=== PATIENT | female | born 1980 | race Caucasian/White ===

== ENCOUNTER 2017-09-14 18:20 | Emergency (ER) | payer MEDICAID ==
[~2017-09-14] VITALS: Ht 165.1 cm; Wt 90.8 kg
[2017-09-14 18:25] VITALS: BP 121/42
[2017-09-14] MEDS ORDERED: CLIN-80 PO (18:27)
== END 2017-09-14 18:43 | disposition home or self-care (01) ==
LOC: ER 18:21
DX: K04.7 Periapical abscess without sinus (principal)
CPT/HCPCS: 99283

== ENCOUNTER 2019-11-13 13:05 | Emergency (ER) | payer MEDICAID ==
[~2019-11-13] VITALS: Ht 167.6 cm; Wt 50.0 kg
[~2019-11-13 13:05] MED LIST: CLIN-97 PO
[2019-11-13] MEDS ORDERED: diphenhydrAMINE 50 mg/ml inj IM ONE (13:30)
[2019-11-13] MEDS ORDERED: LORazepam 2 mg/ml vial IM ONE (13:30)
[2019-11-13] MEDS ORDERED: ziprasidone IM 20mg inj **IM only IM ONE (13:30)
--- NOTE | 2019-11-13 13:30 | NUR ---
Pt uncooperative with staff, requested MD to bedside. MD ordered medication that was administered without incident. Pt changed into green scrubs and given green blanket.
[2019-11-13 13:37] LABS: BASOPHILS # (AUTO) 0.1 X10'3 (0-0.2); BASOPHILS % (AUTO) 1.3 % (0-1); EOSINOPHILS # (AUTO) 0.1 X10'3 (0-0.9); EOSINOPHILS % (AUTO) 1.8 % (0-6); HEMATOCRIT 35.8 % (35.0-45.0); HEMOGLOBIN 11.2 g/dl (12.0-16.0); LYMPHOCYTES # (AUTO) 3.2 X10'3 (1.1-4.8); LYMPHOCYTES % (AUTO) 41.9 % (21-51); MEAN CORPUSCULAR HEMOGLOBIN 23.5 PG (27.0-31.0); MEAN CORPUSCULAR HGB CONC 31.4 g/dL (33.0-36.5); MEAN PLATELET VOLUME 8.9 FL (7.4-10.4); MONOCYTES # (AUTO) 0.3 X10'3 (0-0.9); MONOCYTES % (AUTO) 4.5 % (2-12); NEUTROPHILS # (AUTO) 3.8 X10'3 (1.8-7.7); NEUTROPHILS % (AUTO) 50.5 % (42-75); PLATELET COUNT 254 X10'3 (140-440); RED BLOOD COUNT 4.78 X10'6 (4.20-5.60); RED CELL DISTRIBUTION WIDTH 18.1 % (11.5-14.5); WHITE BLOOD COUNT 7.6 X10'3 (4.5-11.0)
[2019-11-13 13:46] LABS: CLARITY,URINE CLOUDY (Clear); GLUCOSE, URINE NEGATIVE (Neg); KETONES,URINE 40 mg/dl (Neg); LEUKOCYTE ESTERASE ,URINE NEGATIVE (Neg); NITRITES, URINE NEGATIVE (Neg); OCCULT BLOOD,URINE NEGATIVE (Neg); PROTEIN,URINE TRACE mg/dl (Neg); UROBILINOGEN,URINE 0.2 E.U/dL (0.2-1.0)
[2019-11-13 13:56] LABS: ALANINE AMINOTRANSFERASE 18 U/L (12-78); ALBUMIN 4.4 G/DL (3.4-5.0); ALBUMIN/GLOBULIN RATIO 1.3 (1.1-1.5); ALKALINE PHOSPHATASE 61 IU/L (46-116); ANION GAP 11 (8-16); ASPARTATE AMINO TRANSFERASE 16 U/L (10-37); BILIRUBIN,TOTAL 0.6 MG/DL (0.1-1.0); BLOOD UREA NITROGEN 11 MG/DL (7-18); BUN/CREATININE RATIO 13.9 (6.6-38.0); CHLORIDE 104 MMOL/L (99-107); CREATININE 0.79 MG/DL (0.40-0.90); GLUCOSE 92 MG/DL (70-104); POTASSIUM 3.9 MMOL/L (3.5-5.1); SODIUM 139 MMOL/L (135-145); TOTAL PROTEIN 7.9 G/DL (6.4-8.2); eGFR 81 ML/MIN
[2019-11-13 13:57] LABS: UA COLLECTION TYPE NON-SPECIFIED
[2019-11-13 13:58] LABS: COLOR,URINE DARK YELLOW (Yellow)
[2019-11-13 14:00] LABS: RBC,URINE NONE SEEN /HPF (0-2)
--- NOTE | 2019-11-13 14:00 | NUR ---
Pt uncooperative with questioning or physical exam.
--- NOTE | 2019-11-13 14:00 | NUR ---
pt. was brought in in hand cuffs. pt. yelling and saying things like " i have no mother" I am 89 years old and it is documented" pt. keeps coming out of her room and is not redirectable. pt. asked to go back back in her room and she took an ink pen and slamed it into the peralta board that was in the room. the pin was pulled out of the peralta board and both the pen and the peralta board were removed from the room.
[2019-11-13 14:01] LABS: BACTERIA,URINE 1+ /HPF (Neg); MUCUS STRANDS MANY /LPF (Neg); SQUAMOUS EPITHELIAL CELL,UR MODERATE /LPF (FEW)
[2019-11-13 14:05] LABS: ETHANOL < 0.010 GM/DL (0.0-0.010)
--- NOTE | 2019-11-13 14:21 | NUR ---
Pt resting on gurney covered with blanket. No observed distress, breathing unlabored.
[2019-11-13 15:21] LABS: URINE AMPHETAMINE SCREEN NEGATIVE (Neg); URINE BARBITUATE SCREEN NEGATIVE (Neg); URINE BENZODIAZEPINES SCREEN NEGATIVE (Neg); URINE CANNABINOID SCREEN POSITIVE (Neg); URINE COCAINE SCREEN NEGATIVE (Neg); URINE METHADONE SCREEN NEGATIVE (Neg); URINE OPIATE SCREEN NEGATIVE (Neg); URINE PHENCYCLIDINE SCREEN NEGATIVE (Neg)
--- NOTE | 2019-11-13 15:49 | NUR ---
pt was taken from room 15 in the main ER by tech and Security, pt is asleep and unable to give history or do a physical assessment
--- NOTE | 2019-11-13 15:52 | NUR ---
pt was taken from room 15 in the main ER to room 22 in [facility] by tech and security without incident
--- NOTE | 2019-11-13 15:58 | NUR ---
pt is asleep with blanket over her head, quietly snoring
--- NOTE | 2019-11-13 16:52 | NUR ---
pt is sleeping on her left side, regular breathing present
--- NOTE | 2019-11-13 17:52 | NUR ---
POOJA Quiles RN at bedside eval pt, pt calm and cooperative
--- NOTE | 2019-11-13 17:56 | NUR ---
Pt cooperative with BUDDY Judge from [facility], doing mental health eval, states will uphold [id number]
[2019-11-13] MEDS ORDERED: CLON2TAB PO (18:06)
[2019-11-13] MEDS ORDERED: ziprasidone 20mg capsule PO PRN (18:40)
[2019-11-13] MEDS ORDERED: nicotine 7mg patch - 24hr TD PRN (18:40)
[2019-11-13] MEDS ORDERED: diphenhydrAMINE 25mg capsule PO PRN (18:40)
[2019-11-13] MEDS ORDERED: LORazepam 1 MG tablet PO PRN (18:40)
[2019-11-13] MEDS ORDERED: LORazepam 2 mg/ml vial IM PRN (18:45)
[2019-11-13] MEDS ORDERED: diphenhydrAMINE 50 mg/ml inj IM PRN (18:45)
[2019-11-13] MEDS ORDERED: ziprasidone IM 20mg inj **IM only IM PRN (18:45)
--- NOTE | 2019-11-13 18:52 | NUR ---
PO Ativan, Benedryl, and Geodon administered; pt becoming increasingly vocal and agitated about being here, making bizarre statements, and saying she needs to leave. Demanding certain treatments and threatening that she was going to "hurt someone, hurt Emilee, hurt Babita. I'm going to kill them all." Multiple attempts to redirect patient to remain calm and eat some food, eventually agreed to take PO meds and "sleep so it can get fixed, and take Babita out because she is controlling everything." Pt refusing assessment, became increasingly irritated with questions stating "My name is Jorge Avalos. I had it changeed. I am a NO for everything (in response to whether she is experiencing SI, A/VH and other MH assessment parameters).
[2019-11-13] MEDS ORDERED: QUET150T4 PO (19:05)
[2019-11-13] MEDS ORDERED: CLON-372 PO (19:05)
[2019-11-13] MEDS ORDERED: HYDR50TA65 PO (19:05)
[2019-11-13] MEDS ORDERED: QUET300T72 PO (19:05)
[2019-11-13] MEDS ORDERED: hydrOXYzine 25 MG tablet PO PRN (19:35)
[2019-11-13] MEDS ORDERED: clonazePAM 1mg tablet PO PRN (19:35)
--- NOTE | 2019-11-13 20:36 | NUR ---
Report given to Hugh Harden. They will confer with the MD; they need a test prior to acceptance, should they accept. Will obtain while awaiting call back.
--- NOTE | 2019-11-13 20:55 | NUR ---
Pt sleeping, no distress noted. Ate dinner and requested a sandwich that remains at bedside.
[2019-11-13] MEDS ORDERED: quetiapine 100mg tablet PO SCH (21:00)
--- NOTE | 2019-11-14 00:32 | NUR ---
Pt contiues to sleep after recieving medications shortly after change of shift. No distress noted. Pt Have been unable to obtain urine for test as of yet. Once obtained and results recieved, [facility] staff to call [facility].
--- NOTE | 2019-11-14 02:18 | NUR ---
Pt sleeping, no signs of distress. Will continue to monitor.
--- NOTE | 2019-11-14 05:00 | NUR ---
Pt sleeping. No distress noted, will continue to monitor.
[2019-11-14 06:03] VITALS: BP 91/50
--- NOTE | 2019-11-14 06:08 | NUR ---
Pt more agreeable and this RN able to obtain urine sample for test. Pt able to take direction and not irritated at the moment; responding to questions approproiately.
[2019-11-14 06:22] LABS: URINE HCG NEGATIVE (NEG)
--- NOTE | 2019-11-14 06:35 | NUR ---
[facility] called and updated regarding negative test. Faxed to [facility]. Stated they will call back after shift report to complete another nurse to nurse. Pt mood has shifted and she is refusing to talk to this typewriter operator automatic stating "I need Citizen [place] to be translated, I need to speak Sammarinese Syriac." Pt making bizarre and threatening statements "I hate women! Always surrounding me with women! I need to go to care home. I need Babita removed as my mother! I'm going to sell everybody's license plate numbers to the the state! [place]!"
--- NOTE | 2019-11-14 06:40 | NUR ---
qPt pacing, stating she wants to leave. Pt reminded of placement on 5150 and pt to remain here till placement found. Pt offered PRN Klonipin and Atarax and morning dose of Seroquel, pt took meds.
--- NOTE | 2019-11-14 06:59 | NUR ---
Pt refusing to wear face mask, pacing and yelling, security escorted pt back to bed, ED MD being consulted/updated on pt behavior.
--- NOTE | 2019-11-14 06:59 | NUR ---
CALLED TO [facility]. PT. PACING "YELLING ABOUT SHE WANTS TO TALK TO THE TRADE ECONOMIST, WHO SIGNED HER NAME". I ASKED IF THE PT. COULD RETURN TO HER BED SHE STARTED WALKING TOWARDS IT THEN PUSED BY ME. WHEN I TURNED HER AROUND TO THE BED. PT. THROUGH HERSELF ON THE FLOOR SCREAMING. SECURITY ARRIVED AND HELPED ME PUT HER BACK IN HER BED. SECURITY STANDING BY. MD BROWNE ORDERING ZYPREXA TO HELP PT.
[2019-11-14] MEDS ORDERED: OLANZapine **IM** 10 mg inj. IM ONE (07:00)
--- NOTE | 2019-11-14 07:11 | NUR ---
Pt medicated with Zyprexa 10mg IM and pt currently sitting on bed.
--- NOTE | 2019-11-14 07:46 | NUR ---
Gave nurse to nurse report to Page at [facility]. Received call from [facility] office and driver merchandiser to come and transport pt around 8:30 this morning
[2019-11-14] MEDS ORDERED: quetiapine 100mg tablet PO SCH (08:00)
== END 2019-11-14 08:40 ==
LOC: ER 13:05
DX: F29 Unspecified psychosis not due to a substance or known physiological condition (principal); R41.82 Altered mental status, unspecified; Z79.899 Other long term (current) drug therapy
CPT/HCPCS: 36415; 80053; 80305; 80320; 81001; 81025; 84443; 85025; 96372; 99285; J1200; J2060; J3486; J3490; Q0163; Q0177

== ENCOUNTER 2020-04-27 14:20 | Emergency (ER) | payer MEDICAID ==
[~2020-04-27] VITALS: Ht 165.1 cm; Wt 54.5 kg
[~2020-04-27 14:20] MED LIST changes: -CLIN-97 PO; +CLON-372 PO; +CLON2TAB PO; +HYDR50TA65 PO; +QUET150T4 PO; +QUET300T72 PO
[2020-04-27] MEDS ORDERED: azithromycin 250mg tablet PO ONE (20:50)
[2020-04-27] MEDS ORDERED: CefTRIAXone 250MG IM Kit w/LIDOcaine IM ONE (20:50)
[2020-04-27] MEDS ORDERED: penicillin G benzathine 1.2 million unit/2ml syringe IM ONE (20:50)
--- NOTE | 2020-04-27 22:09 | NUR ---
Step father Jamal Duran called stating that he is trying to get the patient conserved. He states she doesn't live at home and doesn't want to go home.
[2020-04-28] MEDS ORDERED: HYDROcodone/acetaminophen 5mg/325mg tablet PO ONE (01:00)
[2020-04-28 01:51] LABS: URINE HCG NEGATIVE (NEG)
[2020-04-28 02:02] LABS: ALANINE AMINOTRANSFERASE 30 U/L (12-78); ALBUMIN 2.7 G/DL (3.4-5.0); ALBUMIN/GLOBULIN RATIO 0.6 (1.1-1.5); ALKALINE PHOSPHATASE 105 IU/L (46-116); ANION GAP 9 (8-16); ASPARTATE AMINO TRANSFERASE 21 U/L (10-37); BILIRUBIN,TOTAL 0.2 MG/DL (0.1-1.0); BLOOD UREA NITROGEN 9 MG/DL (7-18); BUN/CREATININE RATIO 10.8 (6.6-38.0); CHLORIDE 104 MMOL/L (99-107); CREATININE 0.83 MG/DL (0.40-0.90); GLUCOSE 112 MG/DL (70-104); SODIUM 139 MMOL/L (135-145); TOTAL CARBON DIOXIDE 25.7 MMOL/L (24-32); TOTAL PROTEIN 7.2 G/DL (6.4-8.2); eGFR 77 ML/MIN
[2020-04-28 02:02] LABS: CLARITY,URINE SLIGHTLY CLOUDY (Clear); COLOR,URINE YELLOW (Yellow); GLUCOSE, URINE NEGATIVE (Neg); KETONES,URINE NEGATIVE (Neg); LEUKOCYTE ESTERASE ,URINE LARGE (Neg); NITRITES, URINE NEGATIVE (Neg); OCCULT BLOOD,URINE NEGATIVE (Neg); PROTEIN,URINE NEGATIVE (Neg); UROBILINOGEN,URINE 0.2 E.U/dL (0.2-1.0)
[2020-04-28 02:04] LABS: UA COLLECTION TYPE CLN CATCH MIDSTREAM
[2020-04-28 02:04] LABS: BASOPHILS # (AUTO) 0.1 X10'3 (0-0.2); BASOPHILS % (AUTO) 1.1 % (0-1); EOSINOPHILS # (AUTO) 0.7 X10'3 (0-0.9); EOSINOPHILS % (AUTO) 6.6 % (0-6); HEMATOCRIT 24.4 % (35.0-45.0); HEMOGLOBIN 7.4 g/dl (12.0-16.0); LYMPHOCYTES % (AUTO) 27.2 % (21-51); MEAN CORPUSCULAR HEMOGLOBIN 20.9 PG (27.0-31.0); MEAN CORPUSCULAR HGB CONC 30.4 g/dL (33.0-36.5); MEAN CORPUSCULAR VOLUME 68.7 FL (78-98); MEAN PLATELET VOLUME 8.7 FL (7.4-10.4); MONOCYTES # (AUTO) 0.7 X10'3 (0-0.9); MONOCYTES % (AUTO) 6.1 % (2-12); NEUTROPHILS # (AUTO) 6.5 X10'3 (1.8-7.7); PLATELET COUNT 440 X10'3 (140-440); RED BLOOD COUNT 3.56 X10'6 (4.20-5.60); RED CELL DISTRIBUTION WIDTH 18.1 % (11.5-14.5)
[2020-04-28 02:05] LABS: URINE AMPHETAMINE SCREEN NEGATIVE (Neg); URINE BARBITUATE SCREEN NEGATIVE (Neg); URINE BENZODIAZEPINES SCREEN NEGATIVE (Neg); URINE CANNABINOID SCREEN POSITIVE (Neg); URINE COCAINE SCREEN NEGATIVE (Neg); URINE METHADONE SCREEN NEGATIVE (Neg); URINE OPIATE SCREEN NEGATIVE (Neg); URINE PHENCYCLIDINE SCREEN NEGATIVE (Neg)
[2020-04-28 02:09] LABS: ETHANOL < 0.010 GM/DL (0.0-0.010)
[2020-04-28 02:13] LABS: BACTERIA,URINE FEW /HPF (Neg); MUCUS STRANDS NONE SEEN /LPF (Neg); SQUAMOUS EPITHELIAL CELL,UR FEW /LPF (FEW); TRICHOMONAS,URINE FEW /HPF (NEGATIVE); WBC CLUMPS,URINE MODERATE /HPF (NEGATIVE)
[2020-04-28 02:15] LABS: RBC,URINE 0-2 /HPF (0-2)
[2020-04-28 02:43] LABS: LARGE PLATELETS FEW; PLATELET ESTIMATE NORMAL
[2020-04-28 02:44] LABS: ANISOCYTOSIS 2+; HYPOCHROMASIA 1+; MICROCYTOSIS 2+
[2020-04-28] MEDS ORDERED: metroNIDAZOLE 500mg tablet PO ONE (03:10)
[2020-04-28] MEDS: metroNIDAZOLE 500mg tablet PO SCH ×3 (08:00→20:00)
--- NOTE | 2020-04-28 09:30 | NUR ---
[facility] WORKER, ANTONETTE, HERE TO SEE PATIENT.
[2020-04-28] MEDS ORDERED: haloperidol lactate 5mg/ml inj IM ONE (09:40)
--- NOTE | 2020-04-28 09:45 | NUR ---
PATIENT CHANGED INTO GREEN SCRUBS AND BELONGINGS INVENTORIED. PATIENT IS AGITATED WHEN BELONGINGS ARE TAKEN FROM ROOM AND STARTED YELLING AT STAFF.
[2020-04-28] MEDS ORDERED: MIDAZolam 1mg/ml 10ml vial IM ONE (09:50)
[2020-04-28] MEDS ORDERED: MIDAZolam 5mg/ml 2ml vial IM ONE ×2 (09:50→09:55)
--- NOTE | 2020-04-28 09:54 | NUR ---
PATIENT CONTINUES TO YELL AND STRIKING OUT, BANGING ON GLASS DOOR OF ROOM. PATIENT GIVEN [facility] BEHAVIORAL RESTRAINTS APPLIED.
--- NOTE | 2020-04-28 10:15 | NUR ---
PATIENT RESTING QUIETLY ON GURNEY WITH RESTRAINTS INTACT. NO DISTRESS NOTED.
--- NOTE | 2020-04-28 10:36 | NUR ---
TC FROM STEP-FATHER, DORIAN. CONTACT PHONE NUMBER IS [phone]
--- NOTE | 2020-04-28 11:02 | NUR ---
PATIENT IS CALM AND COOPERATIVE AT PRESENT. RESTRAINTS REMOVED AND PATIENT RETURNS TO SLEEP.
--- NOTE | 2020-04-28 18:29 | NUR ---
TC FROM [facility] IN [facility]. NURSE TO NURSE REPORT GIVEN.
--- NOTE | 2020-04-28 20:18 | NUR ---
pt sleeping peacefully on her right side
[2020-04-28] MEDS ORDERED: clonazePAM 0.5mg tablet PO PRN (22:20)
--- NOTE | 2020-04-29 02:25 | NUR ---
pt not cooperative with covid swab. Swab collected w/ assistance of another nurse, however patient moved her head at time of swab, causing bleeding in the nose. Patient given wash cloth to stop the flow and instructed to pinch her nostrils shut. Bleeding stopped after 1 to 2 minutes of compression. Pt given orange juice, warm blanket and 0.5 mg clonazapam. Pt ambulated to the bathroom independently and returned to her room. She is now resting quietly in bed
--- NOTE | 2020-04-29 04:20 | NUR ---
NEGATIVE RESULTS OF COVID TEST SENT TO [facility] OFFICE
--- NOTE | 2020-04-29 06:31 | NUR ---
PT IS WANDERING IN THE [place]. ASKING FOR HER BELONGINGS. PT IS SOME WHAT RE-DIRECTABLE
--- NOTE | 2020-04-29 07:30 | NUR ---
pt is resting. no issues at this time
--- NOTE | 2020-04-29 08:30 | NUR ---
pt will be going to [facility] around [id number]
[2020-04-29] MEDS: metroNIDAZOLE 500mg tablet PO SCH (08:40)
--- NOTE | 2020-04-29 09:30 | NUR ---
pt is sleeping. no issues at this time
--- NOTE | 2020-04-29 10:30 | NUR ---
pt given sweatshirt and pants. pt going to [facility] within 30 mins
[2020-04-29] MEDS ORDERED: sulfamethoxazole/trimethoprim DS (800/160mg) tablet PO ONE (10:35)
[2020-04-29] MEDS ORDERED: LORazepam 1 MG tablet PO ONE (10:35)
[2020-04-29 11:27] VITALS: BP 105/55
== END 2020-04-29 11:50 ==
LOC: ER 14:20
DX: N76.0 Acute vaginitis (principal); A63.0 Anogenital (venereal) warts; R50.9 Fever, unspecified; F15.90 Other stimulant use, unspecified, uncomplicated; Z20.828 Contact with and (suspected) exposure to other viral communicable diseases; Z59.0 Homelessness; Z79.899 Other long term (current) drug therapy
CPT/HCPCS: 36415; 80053; 80305; 80320; 81001; 81025; 84443; 85008; 85025; 86592; 87210; 87491; 87591; 87635; 96372; 99285; C9803; J0561; J0696; J1630; J2250; J3490

== ENCOUNTER 2022-08-17 02:32 | Emergency (ER) | payer MEDICAID ==
[~2022-08-17 02:32] MED LIST changes: +QUET150T16 PO; -QUET150T4 PO; -QUET300T72 PO; +QUET300T91 PO
== END 2022-08-17 03:57 | disposition left against medical advice (07) ==
LOC: ER 02:33
DX: Z00.00 Encounter for general adult medical examination without abnormal findings (principal); Z53.21 Procedure and treatment not carried out due to patient leaving prior to being seen by health care provider

== ENCOUNTER 2022-08-17 04:21 | Emergency (ER) | payer MEDICAID | END 2022-08-17 05:21 | disposition left against medical advice (07) | LOC: ER 04:21 | DX: Z76.0 Encounter for issue of repeat prescription (principal); Z53.21 Procedure and treatment not carried out due to patient leaving prior to being seen by health care provider ==

== ENCOUNTER 2023-02-03 18:02 | Emergency (ER) | payer OTHER ==
[~2023-02-03] VITALS: Ht 167.6 cm; Wt 60.0 kg
[~2023-02-03 18:02] MED LIST changes: +CLON-852 PO; -CLON2TAB PO
[2023-02-03 18:06] VITALS: BP 99/58; PULSE 120; RESP 18; TEMP 98; O2SAT 98
--- NOTE | 2023-02-03 18:42 | NUR ---
[facility] AND [facility] CALLED [facility] JARAMILLO RN CALLED
[2023-02-03] MEDS ORDERED: azithromycin 250mg tablet PO ONE (19:50)
[2023-02-03] MEDS ORDERED: TINIDAZOLE 500 MG TABLET PO ONE (19:50)
[2023-02-03] MEDS ORDERED: CefTRIAXone 500MG IM Kit w/LIDOcaine IM ONE (19:50)
== END 2023-02-03 20:40 | disposition left against medical advice (07) ==
LOC: ER 18:02 → EEVIPCON 18:02 → ER 20:40
DX: T76.21XA Adult sexual abuse, suspected, initial encounter (principal); Z53.21 Procedure and treatment not carried out due to patient leaving prior to being seen by health care provider
CPT/HCPCS: 99281

== ENCOUNTER 2023-02-03 21:13 | Emergency (ER) | payer OTHER ==
[~2023-02-03] VITALS: Ht 167.6 cm; Wt 50.6 kg
[2023-02-03 21:19] VITALS: PULSE 83
[2023-02-03] MEDS ORDERED: naproxen 500mg tablet PO ONE (22:00)
[2023-02-03] MEDS ORDERED: azithromycin 250mg tablet PO ONE (22:50)
[2023-02-03] MEDS ORDERED: CefTRIAXone 500MG IM Kit w/LIDOcaine (for pt below or = to 150kg) IM ONE (22:50)
[2023-02-03] MEDS ORDERED: TINIDAZOLE 500 MG TABLET PO ONE (22:50)
[2023-02-03 22:58] LABS: HIV ANTIBODY 1&2 RAPID NON-REACTIVE (Neg)
--- NOTE | 2023-02-03 23:23 | NUR ---
Pt hx difficult to obtain d/t mental health disorder. Pt claims to have multiple pacemakers and and cerebral palsy. No obvious physical deficits.
[2023-02-03 23:25] LABS: SYPHILIS SCREENING TEST POC POSITIVE (Negative)
[2023-02-03] MEDS ORDERED: PENICILLIN G BENZATHINE 2,400,000 UNIT/4 ML SYRINGE IM STA (23:39)
[2023-02-04 00:12] VITALS: BP 101/62; RESP 16; TEMP 97.6; O2SAT 100
== END 2023-02-04 00:17 | disposition home or self-care (01) ==
LOC: EEVIPCON 21:14 → ER 21:14
DX: T76.21XA Adult sexual abuse, suspected, initial encounter (principal); A53.9 Syphilis, unspecified; M54.59 Other low back pain; F15.10 Other stimulant abuse, uncomplicated; Z79.899 Other long term (current) drug therapy
CPT/HCPCS: 36415; 86592; 86703; 96372; 99284; J0561; J0696

== ENCOUNTER 2023-02-17 23:31 | Emergency (ER) | payer OTHER ==
[~2023-02-17] VITALS: Ht 167.6 cm; Wt 52.3 kg
[~2023-02-17 23:31] MED LIST changes: -CLON-372 PO; -QUET150T16 PO
[2023-02-18 02:03] VITALS: BP 107/68; PULSE 79; RESP 16; TEMP 98.4; O2SAT 100
--- NOTE | 2023-02-18 02:42 | NUR ---
OFFICER HERE AND INTERVIEWING HER THAN I SAW HER WALK OUT OF THE ER. HE IS GOING TO SEE IF SHE WANTS HELP OR NOT.
== END 2023-02-18 02:54 | disposition left against medical advice (07) ==
LOC: ER 23:31
DX: Z00.8 Encounter for other general examination (principal); Z53.21 Procedure and treatment not carried out due to patient leaving prior to being seen by health care provider
CPT/HCPCS: 99281

== ENCOUNTER 2023-03-16 19:39 | Emergency (ER) | payer SELFPAY ==
[~2023-03-16] VITALS: Ht 167.6 cm; Wt 56.4 kg
[2023-03-16 20:26] VITALS: BP 101/70; PULSE 78; RESP 18; TEMP 98.7; O2SAT 100
== END 2023-03-16 22:45 | disposition left against medical advice (07) ==
LOC: ER 19:40
DX: M79.644 Pain in right finger(s) (principal); Z53.21 Procedure and treatment not carried out due to patient leaving prior to being seen by health care provider
CPT/HCPCS: 99281